=== PATIENT | male | born 1965 | race Caucasian/White ===

== ENCOUNTER → 2023-06-05 | Outpatient (CLI) | payer OTHER ==
[2023-06-05 13:02] LABS: Basophils # (A) 0.05 X 10*3/uL (0.00-0.10); Basophils % (A) 0.5 %; Eosinophils # (A) 0.37 X 10*3/uL (0.04-0.35); Eosinophils % (A) 3.9 %; HCT 41.6 % (39.6-50.0); HGB 13.8 g/dL (13.0-17.0); Lymphocytes # (A) 1.59 X 10*3/uL (0.90-5.00); Lymphocytes % (A) 16.6 %; MCH 29.2 pg (27.0-32.0); MCHC 33.2 g/dL (32.0-37.0); MCV 88.1 FL (80.0-97.0); Mean Platelet Volume 10.4 FL (9.5-12.2); Monocytes % (A) 9.4 %; NRBC Per 100 WBC 0 X 10*3/uL (0.00-0.01); Neutrophils # (A) 6.61 X 10*3/uL (1.80-7.70); Neutrophils % (A) 69.3 %; Platelet Count 314 X 10*3/uL (140-440); RBC 4.72 X 10*6/uL (4.40-5.60); RDW 13.5 % (11.5-14.5); WBC 9.55 X 10*3/uL (4.50-10.00)
[2023-06-05 13:48] LABS: ALT 24 U/L (10-49); AST 19 U/L (14-35); Albumin 4.4 g/dL (3.8-4.9); Albumin/Globulin Ratio 1.76 Ratio (1.60-3.17); Alkaline Phosphatase 126 U/L (41-126); BUN/Creat Ratio 18.44 Ratio (12.00-20.00); Blood Urea Nitrogen 16.6 mg/dL (9.0-27.0); Calcium 9.6 mg/dL (8.7-10.3); Carbon Dioxide 27.1 mmol/L (21.6-31.8); Chloride 107 mmol/L (96-109); Chol/HDL Ratio 2.19 Ratio; Globulin 2.5 g/dL (1.6-3.3); Glucose 91 mg/dL (70-110); LDL Cholesterol,Calculated 80.4 mg/dL (0.0-131.0); Potassium 4.9 mmol/L (3.5-5.5); Sodium 144 mmol/L (135-145); Total Bilirubin 0.3 mg/dL (0.3-1.2); Total Protein 6.9 g/dL (6.2-8.2); VLDL Calculation 10.42 mg/dL (5.00-40.00)
== END | disposition home or self-care (01) ==
LOC: LABWHC1 07:09
PROVIDERS: ATTEND Family Medicine
DX: Z12.5 Encounter for screening for malignant neoplasm of prostate (principal); I10 Essential (primary) hypertension
CPT/HCPCS: 80061; 80053; 85025; 36415; G0103

== ENCOUNTER 2023-11-01 07:38 | Day surgery (SDC) | payer OTHER ==
[2023-10-29 16:15] VITALS: BMI 31.9
[~2023-11-01 07:38] MED LIST: LIDOCAINE 1% (10MG/ML) FOR IV START INTRADERMA PRN
[2023-11-01 08:04] VITALS: TEMP 97.8
[2023-11-01] MEDS: LACTATED RINGERS 1,000 ML IV SCH (08:06)
[2023-11-01] MEDS: IV FLUID CONTINUATION 1,000 ML IV ONE (08:07)
[2023-11-01] MEDS ORDERED: PROPOFOL 10 MG/ML 20 ML VIAL IV ONE (08:28)
--- NOTE | 2023-11-01 08:36 | P.GSHP ---
History of Present Illness H&P Date: 11/01/23 Chief Complaint: positive colon guard test is a 57-year-old male who presents today for colonoscopy. Patient recent positive colon guard test. Past Medical History Past Medical History: Hearing Disorder / Deafness, Hypertension, Skin Disorder Additional Past Medical History / Comment(s): Hard of hearing in right ear. Rare migraines. Rosacea. History of Any Multi-Drug Resistant Organisms: None Reported Past Surgical History: No Surgical Hx Reported Additional Past Surgical History / Comment(s): - eye surgery, vasectomy, colonoscopy. Past Anesthesia/Blood Transfusion Reactions: No Reported Reaction Past Psychological History: No Psychological Hx Reported Smoking Status: Never smoker Past Alcohol Use History: Rare Past Drug Use History: None Reported - Past Family History Mother Family Medical History: No Reported History Medications and Allergies Home Medications Medication Instructions Recorded Confirmed Type Minocycline [Minocin] 50 mg PO Q48H 10/29/23 11/01/23 History Rosacea Cream (Unknown Name) 1 applic TOPICAL DAILY 10/29/23 11/01/23 History Triamcinolone 0.1% Cream [Kenalog 1 applic TOPICAL DAILY 10/29/23 11/01/23 History 0.1% Cream] lisinopriL [Zestril] 20 mg PO QAM 10/29/23 11/01/23 History Allergies Allergy/AdvReac Type Severity Reaction Status Date / Time No Known Allergies Allergy Verified 11/01/23 08:00 Surgical - Exam Vital Signs Temp Pulse Resp BP Pulse Ox 97.8 F 89 16 138/85 99 11/01/23 08:02 11/01/23 08:02 11/01/23 08:02 11/01/23 08:02 11/01/23 08:02 - General well developed, well nourished, no distress - Eyes PERRL - ENT normal pinna - Neck no masses - Respiratory normal expansion - Cardiovascular Rhythm: regular - Abdomen Abdomen: soft, non tender Assessment and Plan Assessment: positive colon guard test. We'll perform colonoscopy.
--- NOTE | 2023-11-01 08:52 | P.OP ---
Date of Procedure: 11/01/23 Preoperative Diagnosis: positive colon guard test Postoperative Diagnosis: large transverse colon polyp pathology pending Procedure(s) Performed: colonoscopy Anesthesia: MAC Surgeon: Alfred Rhodes Pathology: other (reverse colon polyp) Condition: stable Disposition: PACU Description of Procedure: patient's placed on the endoscopy table lateral position. He received IV sedation. Digital rectal exam was performed which revealed a few hemorrhoids. Flexible colonoscope was then placed patient anus passed throughout the entire colon. The cecal valve was visualized. The cecum appeared normal. The right colon appeared normal. In the proximal transverse colon. There was a large friable inflamed polyp. This was biopsied. The polyp occupied approximately 25% of the lumen of the colon. He was to be removed. The area tattooed just distally. The remainder of the transverse colon appeared normal. The descending and; there is mild diverticular changes. Scope summer back the rectum this appeared normal. Scope withdrawn for patient.
[2023-11-01 09:08] VITALS: BP 125/85; PULSE 76; RESP 16
== END 2023-11-01 09:27 | disposition home or self-care (01) ==
LOC: ORWHC2ENDO 07:38
PROVIDERS: ATTEND Surgery
DX: K51.40 Inflammatory polyps of colon without complications (principal); I10 Essential (primary) hypertension; G43.909 Migraine, unspecified, not intractable, without status migrainosus; F17.200 Nicotine dependence, unspecified, uncomplicated; Z79.899 Other long term (current) drug therapy
CPT/HCPCS: 88305; 45380; 45381; J2704

== ENCOUNTER → 2024-07-11 | Outpatient (CLI) | payer OTHER ==
[2024-07-11 10:36] LABS: Basophils # (A) 0.04 X 10*3/uL (0.00-0.10); Basophils % (A) 0.6 %; Eosinophils # (A) 0.19 X 10*3/uL (0.04-0.35); Eosinophils % (A) 2.7 %; HCT 43.3 % (39.6-50.0); HGB 14.3 g/dL (13.0-17.0); Lymphocytes # (A) 1.62 X 10*3/uL (0.90-5.00); Lymphocytes % (A) 22.7 %; MCV 87.8 FL (80.0-97.0); Mean Platelet Volume 11.5 FL (9.5-12.2); Monocytes # (A) 0.84 X 10*3/uL (0.20-1.00); Monocytes % (A) 11.8 %; NRBC Per 100 WBC 0 X 10*3/uL (0.00-0.01); Neutrophils # (A) 4.41 X 10*3/uL (1.80-7.70); Neutrophils % (A) 61.8 %; Platelet Count 221 X 10*3/uL (140-440); RBC 4.93 X 10*6/uL (4.40-5.60); RDW 13.2 % (11.5-14.5); WBC 7.13 X 10*3/uL (4.50-10.00)
[2024-07-11 10:51] LABS: Chol/HDL Ratio 2.14 Ratio; VLDL Calculation 10.58 mg/dL (5.00-40.00)
[2024-07-11 10:52] LABS: ALT 30 U/L (10-49); AST 27 U/L (14-35); Albumin 4.3 g/dL (3.8-4.9); Albumin/Globulin Ratio 1.72 Ratio (1.60-3.17); Alkaline Phosphatase 139 U/L (41-126); Blood Urea Nitrogen 14.6 mg/dL (9.0-27.0); Calcium 9.7 mg/dL (8.7-10.3); Carbon Dioxide 26.1 mmol/L (21.6-31.8); Chloride 106 mmol/L (96-109); Globulin 2.5 g/dL (1.6-3.3); Glucose 102 mg/dL (70-110); LDL Cholesterol,Calculated 81.7 mg/dL (0.0-131.0); Potassium 4.5 mmol/L (3.5-5.5); Prostate Specific Antigen 1.46 ng/mL (0.000-3.500); Sodium 143 mmol/L (135-145); Total Bilirubin 0.6 mg/dL (0.3-1.2); Total Protein 6.8 g/dL (6.2-8.2)
== END | disposition home or self-care (01) ==
LOC: LABWHC1 06:56
PROVIDERS: ATTEND Family Medicine
DX: Z00.00 Encounter for general adult medical examination without abnormal findings (principal); Z13.220 Encounter for screening for lipoid disorders; Z68.31 Body mass index [BMI] 31.0-31.9, adult; Z12.5 Encounter for screening for malignant neoplasm of prostate; I10 Essential (primary) hypertension; N52.9 Male erectile dysfunction, unspecified; L71.9 Rosacea, unspecified; G43.009 Migraine without aura, not intractable, without status migrainosus
CPT/HCPCS: 36415; 80053; 80061; 84153; 85025